=== PATIENT | female | born 1990 | race African-American/Black ===

== ENCOUNTER 2016-10-24 11:05 | Emergency (ER) | payer OTHER ==
[~2016-10-24] VITALS: Ht 160 cm; Wt 60.0 kg
[~2016-10-24 11:05] MED LIST: IBUP600T26 PO
[2016-10-24 11:09] VITALS: BP 132/68; PULSE 74; RESP 15; TEMP 98.2; O2SAT 98
[2016-10-24] MEDS ORDERED: SODIUM CHLOR 0.9% 1000 ML INJ 1,000 ML IV SCH (11:40)
[2016-10-24 11:44] VITALS: O2SAT 98
[2016-10-24] MEDS ORDERED: HYDROmorphone HCL PF 1 MG/ML VIAL IV PUSH ONE (11:45)
[2016-10-24] MEDS ORDERED: ONDANSETRON HCL 4 MG/2 ML VIAL IVP ONE (11:45)
[2016-10-24] MEDS ORDERED: SODIUM CHLORIDE 0.9% FLUSH 10 ML FLUSH IV FLUSH PRN (11:45)
--- NOTE | 2016-10-24 11:48 | PD ---
HPI Chief Complaint: Abdominal Pain Time Seen by Provider: 11:44 Travel History International Travel<30 days: No Contact w/Intl Traveler<30days: No Traveled to known affect area: No History of Present Illness HPI 26-year-old female presents to the emergency department for evaluation of right lower abdominal pain that started 3 days ago. She states this sharp in nature. She does state it is worse with walking. The patient denies any chronic medical problems. She takes no prescribed medications. She does smoke tobacco and marijuana entrance alcohol occasionally. She denies . She states her last menstrual cycle was October 02, 2016. She denies any abnormal vaginal discharge or bleeding. She reports one sexual partner in the past 7 years. Patient does report some dysuria as well. She denies any previous abdominal surgeries. No fevers or chills. No chest pain. She states nausea, but no vomiting. She does report 2 episodes of diarrhea today. No blood in her stool. PFSH Past Medical History Hx Anticoagulant Therapy: No Cardiovascular Problems: No Chemotherapy: No Cerebrovascular Accident: No Diabetes: No Respiratory: No Immunizations Current: Yes ?: Not LMP: 10/02/2016 Past Surgical History Hysterectomy: No Social History Alcohol Use: Yes (occasionally) Tobacco Use: Yes Substance Use: Yes (marijuana) Allergies-Medications (Allergen,Severity, Reaction): Coded Allergies: No Known Allergies (Verified , 10/24/16) Reported Meds & Prescriptions Reported Meds & Active Scripts Active Doxycycline Hyclate 100 Mg Cap 100 Mg PO BID Review of Systems Except as stated in HPI: all other systems reviewed are Neg Physical Exam Narrative GENERAL: Well-nourished, well-developed female patient, ambulatory. Afebrile. SKIN: Focused skin assessment warm/dry. HEAD: Normocephalic. Atraumatic. EYES: No scleral icterus. No injection or drainage. NECK: Supple, trachea midline. No JVD or lymphadenopathy. CARDIOVASCULAR: Regular rate and rhythm without murmurs, gallops, or rubs. RESPIRATORY: Breath sounds equal bilaterally. No accessory muscle use. Lungs sounds are clear to auscultation. GASTROINTESTINAL: Abdomen soft and nondistended. Patient has diffuse tenderness to palpation, worse over the right lower quadrant, McBurney's point. She also has a positive Rovsing sign. MUSCULOSKELETAL: No cyanosis, or edema. BACK: Nontender without obvious deformity. No CVA tenderness. GENITOURINARY: Normal external genitalia without lesions or erythema. Vaginal vault without blood or drainage. Cervical os was closed with white drainage. Positive cervical motion tenderness. Uterus nontender and nonenlarged. Bilateral adnexa nontender without masses. This exam was done with the nurse at bedside. Data Data Last Documented VS Vital Signs Date Time Temp Pulse Resp B/P Pulse Ox O2 Delivery O2 Flow Rate FiO2 10/24/16 15:15 74 16 104/56 98 Room Air 10/24/16 11:09 98.2 Orders Complete Blood Count With Diff (10/24/16 11:40) Comprehensive Metabolic Panel (10/24/16 11:40) Lipase (10/24/16 11:40) Urinalysis - C+S If Indicated (10/24/16 11:40) Ct Abd/Pel W Iv Contrast(Rout) (10/24/16 11:40) Iv Access Insert/Monitor (10/24/16 11:40) Ecg Monitoring (10/24/16 11:40) Oximetry (10/24/16 11:40) Ondansetron Inj (Zofran Inj) (10/24/16 11:45) Sodium Chlor 0.9% 1000 Ml Inj (Ns 1000 M (10/24/16 11:40) Sodium Chloride 0.9% Flush (Ns Flush) (10/24/16 11:45) Ed Urine Pregnancytest Poc (10/24/16 11:40) Hydromorphone Pf Inj (Dilaudid Pf Inj) (10/24/16 11:45) Gc And Chlamydia Pcr (10/24/16 11:43) Wet Prep Profile (10/24/16 11:43) Iohexol 350 Inj (Omnipaque 350 Inj) (10/24/16 12:19) Azithromycin Powd Pack (Zithromax Powd P (10/24/16 13:30) Ceftriaxone Inj (Rocephin Inj) (10/24/16 13:30) Lidocaine 1% Inj (50 Ml) (Xylocaine 1% I (10/24/16 13:30) Us Pelvis Comp W Transvaginal (10/24/16 ) Labs Laboratory Tests Test 10/24/16 10/24/16 11:32 13:15 White Blood Count 6.9 TH/MM3 Red Blood Count 4.36 MIL/MM3 Hemoglobin 13.2 GM/DL Hematocrit 38.7 % Mean Corpuscular Volume 88.7 FL Mean Corpuscular Hemoglobin 30.2 PG Mean Corpuscular Hemoglobin 34.1 % Concent Red Cell Distribution Width 14.2 % Platelet Count 314 TH/MM3 Mean Platelet Volume 9.4 FL Neutrophils (%) (Auto) 52.0 % Lymphocytes (%) (Auto) 34.9 % Monocytes (%) (Auto) 9.9 % Eosinophils (%) (Auto) 2.4 % Basophils (%) (Auto) 0.8 % Neutrophils # (Auto) 3.6 TH/MM3 Lymphocytes # (Auto) 2.4 TH/MM3 Monocytes # (Auto) 0.7 TH/MM3 Eosinophils # (Auto) 0.2 TH/MM3 Basophils # (Auto) 0.1 TH/MM3 CBC Comment DIFF FINAL Differential Comment Urine Color DARK-YELLOW Urine Turbidity CLEAR Urine pH 6.0 Urine Specific [place] 1.016 Urine Protein NEG mg/dL Urine Glucose (UA) NEG mg/dL Urine Ketones NEG mg/dL Urine Occult Blood NEG Urine Nitrite NEG Urine Bilirubin NEG Urine Urobilinogen LESS THAN 2.0 MG/DL Urine Leukocyte Esterase SMALL Urine RBC 1 /hpf Urine WBC 3 /hpf Urine Squamous Epithelial 3 /hpf Cells Microscopic Urinalysis Comment CULT NOT INDICATED Sodium Level 140 MEQ/L Potassium Level 4.0 MEQ/L Chloride Level 107 MEQ/L Carbon Dioxide Level 28.3 MEQ/L Anion Gap 5 MEQ/L Blood Urea Nitrogen 8 MG/DL Creatinine 0.79 MG/DL Estimat Glomerular Filtration 107 ML/MIN Rate Random Glucose 71 MG/DL Calcium Level 9.0 MG/DL Total Bilirubin 0.4 MG/DL Aspartate Amino Transf 21 U/L (AST/SGOT) Alanine Aminotransferase 23 U/L (ALT/SGPT) Alkaline Phosphatase 76 U/L Total Protein 7.8 GM/DL Albumin 4.0 GM/DL Lipase 113 U/L Clue Cells (Wet Prep) NONE SEEN Vaginal Trichomonas (Wet Prep) NONE SEEN Vaginal Yeast (Wet Prep) NONE SEEN MDM Medical Decision Making Medical Screen Exam Complete: Yes Emergency Medical Condition: Yes Medical Record Reviewed: Yes Interpretation(s) Last Impressions Abdomen/Pelvis CT 10/24/16 1140 Signed Impressions: Service Date/Time: Monday, October 24, 2016 12:05 - CONCLUSION: Small cystic mass right adnexa region with probable dilated tube as well. There is no free fluid. I cannot see air normal appendix. However I do not see inflammatory changes in the region of the cecum. Gage Lopez MD FACR pelvic US = CONCLUSION: Abnormal appearance to the right adnexa with a complex cystic area in or adjacent to the right ovary measuring 2.7 cm. There is also a dilated tubular structure, possibly representing a dilated fallopian tube. Small amount of free fluid. Differential Diagnosis Appendicitis versus UTI versus vaginitis versus ovarian cyst versus ovarian torsion versus TOA Narrative Course 26-year-old female presents to the emergency department for evaluation of right lower quadrant pain for 3 days. Physical exam does reveal tenderness over lower quadrant, positive sign. However, she also has some mild diffuse tenderness to palpation. CBC, CMP, lipase, UA, urine test are ordered and pending. Pelvic exam will be performed as well as her chlamydia, gonorrhea, wet prep will be obtained. Patient gives verbal consent. CT the abdomen/pelvis with IV contrast is ordered and pending. CBC shows no acute abnormality. CMP is unremarkable. Lipase is 113. UA is negative for acute infection. UPT is negative. Wet prep is negative for yeast , Trichomonas, bacterial vaginosis. CT abdomen/pelvis shows small cystic mass right adnexa region with probable dilated tube as well. There is no free fluid. I cannot see air normal appendix. However I do not see inflammatory changes in the region of the cecum. Patient was treated with azithromycin 1 g by mouth and Rocephin 250 mg IM due to cervical motion tenderness and CT scan consistent with PID. Ultrasound of the pelvis was completed to rule out possible tubo-ovarian abscess. Ultrasound of pelvis shows abnormal appearance the right adnexa with a complex cystic structure in or adjacent to the right ovary measuring 2.7 cm. There is also a dilated tubular structure, possibly representing a dilated fallopian tube. Small amount of free fluid. I called her OB hospitalist on-call and spoke to Dr. Danial Amaro. I explained symptoms and physical exam findings as well as imaging findings with him. He states this does not sound like a tubo-ovarian abscess and is most likely PID. He recommends outpatient treatment and follow- up with a receiver setter. Patient is to return for any acute worsening of symptoms. I discussed the symptoms with the patient. She verbalizes agreement and understanding. She'll be discharged with a prescription for doxycycline. Diagnosis Primary Impression: Pelvic inflammatory disease (PID) Referrals: [facility] 2 days Patient Instructions: General Instructions, Pelvic Inflammatory Disease (ED) Additional Instructions: Take doxycycline as directed until gone. Do not drink alcohol while on Flagyl. Follow-up with your receiver setter in 2-3 days. Return for any acute worsening of symptoms. Med/Other Pt SpecificInfo: Prescription(s) given Scripts Metronidazole 500 Mg [id number] Mg PO BID 14 Days Ref 0 Prov:Odalys Mae 10/24/16 Doxycycline Hyclate 100 Mg [id number] Mg PO BID #28 CAP Ref 0 Prov:Odalys Mae 10/24/16 Disposition: 01 DISCHARGE HOME Condition: Stable Odalys Mae Oct 24, 2016 11:48
[2016-10-24 12:05] LABS: AUTOMATED NEUTROPHIL # 3.6 TH/MM3 (1.8-7.7); BASOPHIL # 0.1 TH/MM3 (0-0.2); BASOPHIL % 0.8 % (0.0-2.0); EOSINOPHIL # 0.2 TH/MM3 (0-0.4); EOSINOPHIL % 2.4 % (0.0-4.0); HEMATOCRIT 38.7 % (35.0-46.0); HEMO FLAGS DIFF FINAL; LYMPH % 34.9 % (9.0-44.0); LYMPHOCYTE # 2.4 TH/MM3 (1.0-4.8); MEAN CELL VOLUME 88.7 FL (80.0-100.0); MEAN CORPUSCULAR HEMOGLOBIN 30.2 PG (27.0-34.0); MEAN CORPUSCULAR HGB CONC 34.1 % (32.0-36.0); MONO % 9.9 % (0.0-8.0); PLATELET COUNT 314 TH/MM3 (150-450); RED BLOOD COUNT 4.36 MIL/MM3 (4.00-5.30); RED CELL DISTRIBUTION WIDTH 14.2 % (11.6-17.2); WHITE BLOOD COUNT 6.9 TH/MM3 (4.0-11.0)
[2016-10-24 12:07] LABS: BLOOD, URINE NEG (NEG); GLUCOSE,URINE NEG (NEG); KETONE, URINE NEG (NEG); NITRITE,URINE NEG (NEG); SQUAMOUS EPITHELIAL CELL URINE 3 /hpf (0-5); URINE COLOR DARK-YELLOW (YELLW/STRAW)
[2016-10-24 12:09] LABS: COMMENT (UR) CULT NOT INDICATED; CULTURE IF INDICATED CULT NOT INDICATED
[2016-10-24] MEDS ORDERED: IOHEXOL 350 MG/ML 10 ML VIAL (for RAD DIAG) IV ONE (12:19)
--- NOTE | 2016-10-24 12:24 | RADRPT ---
EXAM DATE/TIME: 10/24/2016 12:05 [facility] COMPARISON: No previous studies available for comparison. INDICATIONS : Right lower quadrant pain. IV CONTRAST: 90 cc Omnipaque 350 (iohexol) IV ORAL CONTRAST: No oral contrast ingested. RADIATION DOSE: 4.85 CTDIvol (mGy) MEDICAL HISTORY : None SURGICAL HISTORY : None. ENCOUNTER: Initial ACUITY: 1 day PAIN SCALE: 4/10 LOCATION: Right lower quadrant TECHNIQUE: Volumetric scanning of the abdomen and pelvis was performed. Using automated exposure control and adjustment of the mA and/or kV according to patient size, radiation dose was kept as low as reasonably achievable to obtain optimal diagnostic quality images. FINDINGS: LOWER LUNGS: The visualized lower lungs are clear. LIVER: Homogeneous density without lesion. There is no dilation of the biliary tree. No calcifi ed gallstones. SPLEEN: Normal size without lesion. PANCREAS: Within normal limits. KIDNEYS: Normal in size and shape. There is no mass, stone or hydronephrosis. ADRENAL GLANDS: Within normal limits. VASCULAR: There is no aortic aneurysm. BOWEL/MESENTERY: The stomach, small bowel, and colon demonstrate no acute abnormality. There is no free intraperitoneal air or fluid. ABDOMINAL WALL: Within normal limits. RETROPERITONEUM: There is no lymphadenopathy. BLADDER: No wall thickening or mass. REPRODUCTIVE: There is an small 1.5 cm cystic mass in the right adnexa region with probable dilat ed tube as well. INGUINAL: There is no lymphadenopathy or hernia. MUSCULOSKELETAL: Within normal limits for patient age. CONCLUSION: Small cystic mass right adnexa region with probable dilated tube as well. There is n o free fluid. I cannot see air normal appendix. However I do not see inflammatory changes in the re gion of the cecum. Gage Lopez MD FACR on October 24, 2016 at 12:21 Board Certified Radiologist. This report was verified electronically.
[2016-10-24 12:34] LABS: ANION GAP 5 MEQ/L (5-15); AST (GOT) 21 U/L (15-37); BICARBONATE 28.3 MEQ/L (21.0-32.0); BLOOD UREA NITROGEN 8 MG/DL (7-18); CHLORIDE 107 MEQ/L (98-107); GLOMERULAR FILTRATION RATE 107 ML/MIN (>89); SODIUM (NA) 140 MEQ/L (136-145)
[2016-10-24 12:37] LABS: ALKALINE PHOSPHATASE 76 U/L (45-117); ALT (GPT) 23 U/L (10-53); TOTAL BILIRUBIN ADULT 0.4 MG/DL (0.2-1.0)
[2016-10-24 13:10] VITALS: BP 110/62; PULSE 64; RESP 18; O2SAT 97
[2016-10-24] MEDS ORDERED: AZITHROMYCIN PWD FOR SUSP 1 GM PACKET PO ONE (13:30)
[2016-10-24] MEDS ORDERED: LIDOCAINE HCL 1% 50 ML VIAL IM ONE (13:30)
[2016-10-24] MEDS ORDERED: cefTRIAXone 250 MG VIAL IM ONE (13:30)
[2016-10-24 15:15] VITALS: BP 104/56; PULSE 74; RESP 16; O2SAT 98
--- NOTE | 2016-10-24 15:25 | RADRPT ---
EXAM DATE/TIME: 10/24/2016 14:18 [facility] COMPARISON: No previous studies available for comparison. INDICATIONS : Abcsess. MEDICAL HISTORY : Pelvic pain. SURGICAL HISTORY : None. ENCOUNTER: Initial ACUITY: 3 days PAIN SCORE: 5/10 LOCATION: Bilateral pelvis MEASUREMENTS: UTERUS: 6.4 x 3.2 x 3.7 cm ENDOMETRIAL STRIPE: 8 mm RIGHT OVARY: 4.6 x 3.1 x 2.7 cm LEFT OVARY: 3.5 x 2.3 x 2.8 cm FINDINGS: UTERUS: The myometrium has homogeneous echotexture without mass. RIGHT OVARY: There is a complex cystic area in the right ovary which has a target type of appearance with a hypoec hoic rim, moderate size intermediate echo central ring and a small hypoechoic central portion. This measures 2.7 x 2.4 x 2.1 cm. No flow seen within or about this lesion on color Doppler. There is al so a prominent tubular structure in the right adnexal region which measures 1.2 x 1.7 cm. No increas ed flow seen about this area. No free fluid in the adnexa. LEFT OVARY: Ovary contains no mass or significant cystic lesion. Solitary small follicular cysts. MISCELLANEOUS: There is a mild amount of free fluid in the cul-de-sac. CONCLUSION: Abnormal appearance to the right adnexa with a complex cystic area in or adjacent to the right ovary measuring 2.7 cm. There is also a dilated tubular structure, possibly representing a dilated fallopi an tube. Small amount of free fluid. Davon Milton MD on October 24, 2016 at 15:20 Board Certified Radiologist. This report was verified electronically.
[2016-10-24] MEDS ORDERED: DOXY100C PO (15:39)
[2016-10-24] MEDS ORDERED: METR500T10 PO (15:45)
[2016-10-24 15:48] LABS: CHLAMYDIA PCR NOT DETECTED (NOT DETECT); NEISSERIA PCR NOT DETECTED (NOT DETECT)
== END 2016-10-24 16:03 | disposition home or self-care (01) ==
LOC: NEPE 11:05
DX: N73.9 Female pelvic inflammatory disease, unspecified (principal); R30.0 Dysuria; R11.0 Nausea; R19.7 Diarrhea, unspecified; Z72.0 Tobacco use
CPT/HCPCS: 74177; 76830; 76856; 80053; 81001; 83690; 84703; 85025; 87210; 87491; 87591; 96361; 96372; 96374; 96375; 99284; J0696; J1170; J2405; J7030; Q9967

== ENCOUNTER 2017-09-14 11:22 | Emergency (ER) | payer SELFPAY ==
[~2017-09-14] VITALS: Ht 160 cm; Wt 63.5 kg
[~2017-09-14 11:22] MED LIST changes: +DOXY100C PO; -IBUP600T26 PO; +METR1TAB76 PO
[2017-09-14 11:23] VITALS: BP 116/77; PULSE 79; RESP 16; TEMP 98.3; O2SAT 100
[2017-09-14 11:50] LABS: BACTERIA, URINE RARE /hpf; BILIRUBIN, URINE NEG (NEG); BLOOD, URINE NEG (NEG); GLUCOSE,URINE NEG (NEG); KETONE, URINE NEG (NEG); NITRITE,URINE NEG (NEG); PH, URINE 6.5 (5.0-8.5); RENAL EPITHELIAL CELLS <1 /hpf; SQUAMOUS EPITHELIAL CELL URINE 6 /hpf (0-5); URINE COLOR YELLOW (YELLW/STRAW); URINE LEUKOCYTE ESTERASE LARGE (NEG)
--- NOTE | 2017-09-14 12:02 | PD ---
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 Denies vomiting. Denies fever, abdominal pain, dysuria. Unknown exposure to STI/STD. Denies contraception use. Last menstrual period July 29. Has not taken any medications or tried any treatments to alleviate her symptoms. No known aggravating or relieving factors. Symptoms are mild to moderate in severity. No primary care provider. No hardwood sawyer. Denies allergies. Denies significant past medical history. Has no medical complaints. No other modifying factors or associated signs and symptoms. PFSH Past Medical History Hx Anticoagulant Therapy: No Cardiovascular Problems: No Chemotherapy: No Cerebrovascular Accident: No Diabetes: No Respiratory: No Immunizations Current: Yes ?: Unknown Past Surgical History Hysterectomy: No Social History Alcohol Use: Yes (occasionally) Tobacco Use: Yes Substance Use: Yes (marijuana) Allergies-Medications (Allergen,Severity, Reaction): Coded Allergies: No Known Allergies (Verified , 10/24/16) Reported Meds & Prescriptions Reported Meds & Active Scripts Active Metronidazole 500 Mg Tab 500 Mg PO BID 14 Days Doxycycline Hyclate 100 Mg Cap 100 Mg PO BID Review of Systems Except as stated in HPI: all other systems reviewed are Neg Physical Exam Narrative GENERAL: Well-nourished, well-developed black female patient, in no acute distress; afebrile, nontoxic-appearing SKIN: Warm and dry. HEAD: Atraumatic. Normocephalic. EYES: Pupils equal and round. No scleral icterus. No injection or drainage. ENT: Mucous membranes pink and moist. NECK: Trachea midline. No lymphadenopathy. CARDIOVASCULAR: Regular rate. RESPIRATORY: No accessory muscle use. GASTROINTESTINAL: Abdomen soft, non-tender, nondistended. Pelvic region/ bladder with tenderness to palpation. Hepatic and splenic margins not palpable. No guarding, rigidity, rebound tenderness. PELVIC: Exam done in the presence of a nurse. Speculum exam reveals edematous and erythematous cervix with mucopurulent, foul-smelling discharge. Bimanual exam reveals no palpable masses or adnexa tenderness, no uterine tenderness. Positive cervical motion tenderness. BACK: No CVA tenderness. MUSCULOSKELETAL: No obvious deformities. No clubbing. No cyanosis. No edema. NEUROLOGICAL: Awake and alert. No obvious cranial nerve deficits. Motor grossly within normal limits. Normal speech. PSYCHIATRIC: Appropriate mood and affect; insight and judgment normal. Data Data Last Documented VS Vital Signs Date Time Temp Pulse Resp B/P (MAP) Pulse Ox O2 Delivery O2 Flow Rate FiO2 09/14/17 11:23 98.3 79 16 116/77 (90) 100 Room Air Orders Orders Urinalysis - C+S If Indicated (09/14/17 11:27) Ed Urine Pregnancytest Poc (09/14/17 11:27) Gc And Chlamydia Pcr (09/14/17 11:45) Wet Prep Profile (09/14/17 11:45) Ceftriaxone Inj (Rocephin Inj) (09/14/17 12:15) Lidocaine 1% Inj (50 Ml) (Xylocaine 1% I (09/14/17 12:15) Azithromycin (Zithromax) (09/14/17 12:15) Ondansetron Odt (Zofran Odt) (09/14/17 12:15) Lidocaine Pf 1% Inj (Xylocaine-Mpf 1% In (09/14/17 12:28) Labs Laboratory Tests Test 09/14/17 11:33 09/14/17 12:00 Urine Color YELLOW Urine Turbidity HAZY Urine pH 6.5 Urine Specific [place] 1.020 Urine Protein NEG mg/dL Urine Glucose (UA) NEG mg/dL Urine Ketones NEG mg/dL Urine Occult Blood NEG Urine Nitrite NEG Urine Bilirubin NEG Urine Urobilinogen LESS THAN 2.0 MG/DL Urine Leukocyte Esterase LARGE Urine RBC 4 /hpf Urine WBC 6 /hpf Urine Squamous Epithelial Cells 6 /hpf Urine Renal Epithelial Cells <1 /hpf Urine Bacteria RARE /hpf Microscopic Urinalysis Comment CULT NOT INDICATED Clue Cells (Wet Prep) PRESENT Vaginal Trichomonas (Wet Prep) NONE SEEN Vaginal Yeast (Wet Prep) NONE SEEN MDM Medical Decision Making Medical Screen Exam Complete: Yes Emergency Medical Condition: Yes Medical Record Reviewed: Yes Differential Diagnosis PID, chlamydia, gonorrhea, Trichomonas, vaginal yeast, bacterial vaginosis Narrative Course 27-year-old female physical exam consistent with pelvic inflammatory disease and cervicitis. Chlamydia, gonorrhea, wet prep, urinalysis ordered. UPT negative. Positive cervical motion tenderness on exam. Cervix is erythematous and edematous. Foul-smelling mucopurulent discharge. Patient empirically treated with Rocephin and azithromycin in the emergency department. 1243: Urinalysis without signs of infection. Bacterial vaginosis positive. Trichomonas, vaginal yeast negative. Chlamydia and gonorrhea pending. Flagyl and doxycycline prescribed for home. Instructed patient to follow up with hardwood sawyer. Community resources for follow-up provided. Instructed patient to follow up with primary care provider. Patient verbalizes understanding and agreement with treatment plan. Patient is medically cleared and stable for discharge. Discussed reasons to return to the emergency department. Patient agrees with treatment plan. The patients vital signs are stable and the patient is stable for outpatient follow-up and treatment. Patient discharged home, stable and in no acute distress. Diagnosis Primary Impression: Pelvic inflammatory disease (PID) Additional Impression: Bacterial vaginosis Referrals: [facility] Primary Care Physician Patient Instructions: Bacterial Vaginosis (ED), Cervicitis (ED), General Instructions, Pelvic Inflammatory Disease (ED) Additional Instructions: Avoid sexual activity for 14 days No sexual activity with your partner/s until they have been treated and waited 14 days Inform all sexual partners within the past 3-6 months that they need to be evaluated and treated Use condoms every time you have sex Follow-up with primary care provider Follow-up with hardwood sawyer Return to the emergency department immediately with worsening of symptoms Med/Other Pt SpecificInfo: Prescription(s) given Scripts Metronidazole (Metronidazole) 500 Mg Tab 500 MG PO BID for Infection for 14 Days, TAB 0 Refills Prov: Terra Cárdenas 09/14/17 Doxycycline Hyclate (Doxycycline Hyclate) 100 Mg Cap 100 MG PO BID for Infection, #28 CAP 0 Refills Prov: Terra Cárdenas 09/14/17 Disposition: DISCHARGE HOME Condition: Stable Terra Cárdenas Sep 14, 2017 12:02
[2017-09-14] MEDS ORDERED: cefTRIAXone 250 MG VIAL IM ONE (12:15)
[2017-09-14] MEDS ORDERED: ONDANSETRON ODT 4 MG TAB PO ONE (12:15)
[2017-09-14] MEDS ORDERED: AZITHROMYCIN 250 MG TAB PO ONE (12:15)
[2017-09-14] MEDS ORDERED: LIDOCAINE HCL 1% 50 ML VIAL IM ONE (12:15)
[2017-09-14] MEDS ORDERED: LIDOCAINE HCL 1% PF 30 ML VIAL ONE (12:28)
[2017-09-14] MEDS ORDERED: METR1TAB76 PO (12:45)
[2017-09-14] MEDS ORDERED: DOXY100C PO (12:45)
== END 2017-09-14 13:17 | disposition home or self-care (01) ==
LOC: NEPD 11:22
DX: N73.9 Female pelvic inflammatory disease, unspecified (principal); B96.89 Other specified bacterial agents as the cause of diseases classified elsewhere; N76.0 Acute vaginitis; F12.90 Cannabis use, unspecified, uncomplicated; Z72.0 Tobacco use
CPT/HCPCS: 81001; 84703; 87210; 87491; 87591; 96372; 99284; J0696